=== PATIENT | female | born 1950 | race Caucasian/White ===

== ENCOUNTER → 2020-09-05 | Outpatient (CLI) | payer OTHER ==
[~2020-09-05] MED LIST: ALTACE10 MG PO; ASPIRIN CHEWABL81 MG PO; CRESTOR5 MG PO; FLAGYL500 MG PO; GLUCOPHAGE XR500 MG PO; GLUCOTROL XL 22.5 MG PO; HYDROCHLOROTHIA25 MG PO; IBUPROFEN600 MG PO; INDERAL TAB 2020 MG PO; KEFLEX CAP 500500 MG PO; LANTUS100 UNIT/1 SQ; LOVENOX SY40 MG/0.4 SQ; METHOCARBAMOL750 MG PO; NORCO 5-325 TA1 EACH PO; OMEPRAZOLE20 MG PO; VITAMIN B-121000 MCG PO; VITAMIN C 500500 MG PO; VITAMIN D250000 UNIT PO; VITAMIN D3 PO
== END ==
LOC: HEART 5 08:00
DX: R07.9 Chest pain, unspecified (principal); R00.2 Palpitations
CPT/HCPCS: 78452; A9502; J2785

== ENCOUNTER → 2020-09-11 | Outpatient (CLI) | payer OTHER | LOC: ECHO 13:30 | DX: R06.09 Other forms of dyspnea (principal); R10.9 Unspecified abdominal pain; N28.89 Other specified disorders of kidney and ureter; I08.3 Combined rheumatic disorders of mitral, aortic and tricuspid valves; I27.20 Pulmonary hypertension, unspecified; R93.1 Abnormal findings on diagnostic imaging of heart and coronary circulation | CPT/HCPCS: ECHO; 93306 ==

== ENCOUNTER → 2020-09-26 | Outpatient (CLI) | payer OTHER | LOC: CT 14:00 | PROVIDERS: Internal Medicine | DX: N28.89 Other specified disorders of kidney and ureter (principal); Z13.1 Encounter for screening for diabetes mellitus | CPT/HCPCS: 36415; 80053; Q9967 ==

== ENCOUNTER → 2021-05-25 | Outpatient (CLI) | payer OTHER | LOC: EMI 15:44 | DX: R53.1 Weakness (principal); M51.37 Other intervertebral disc degeneration, lumbosacral region | CPT/HCPCS: 72148 ==

== ENCOUNTER → 2021-06-04 | Outpatient (CLI) | payer OTHER | LOC: HEART 5 14:15 | DX: R00.2 Palpitations (principal) ==